=== PATIENT | female | born 1995 | race Two or more races ===

== ENCOUNTER 2024-11-11 00:35 | Emergency (ER) | payer MEDICAID ==
[~2024-11-11] VITALS: Ht 154.9 cm; Wt 81.8 kg
--- NOTE | 2024-11-11 00:50 | ECG ---
[facility] Test Date: 2024-11-11 Test Time: 00:49:22 Pat Name: RADHA CAMACHO Department: ED Room: Gender: F Rn Call Center: [facility] : 1995 Requested By: NEVAEH ESTEVES Order Number: [id number] Reading MD: Memo Crowley Measurements Intervals Orange Rate: 96 P: 46 OK: 167 QRS: -26 QRSD: 92 T: -34 QT: 358 QTc: 453 Interpretive Statements Sinus rhythm Borderline left axis deviation Nonspecific T abnormalities, diffuse leads Electronically Signed On 11-11-2024 20:36:44 PDT by Memo Crowley Please click the below link to view image of tracing.
--- NOTE | 2024-11-11 01:14 | ED.PDOC ---
History of Present Illness HPI Comments This patient is a 29-year-old female who was brought to the ED today by EMS due to complaints of anxiety status post utilizing cocaine approximately 2 hours prior to arrival. Patient states she has used cocaine in the past, but this time felt like her heart was beating out of her chest and caused her anxiety. Patient has a history of anxiety for which he utilize his medication. Patient denies any fever nausea or vomiting. Patient was mildly tachycardic at arrival. 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: No Pertinent OIL PROGRAM COMPLIANCE SPECIALIST History Family History Family History: Reviewed,noncontributory to illness, No family hx of Cancer, No family hx of DM, No family hx of Heart kinga, No family hx of HTN, No family hx ofKidney kinga, No family hx of Liver kinga, No family hx of Lung kinga, No family hx of Stroke Social History Smoker: Non-Smoker Alcohol: Denies ETOH Use Drugs: Cocaine Lives In: Home Constitutional: denies: chills, diaphoresis, fatigue, fever, malaise, sweats, weakness, others EENTM: denies: blurred vision, double vision, ear bleeding, ear discharge, ear drainage, ear pain, ear ringing, eye pain, eye redness, hearing loss, mouth pain, mouth swelling, nasal discharge, nose bleeding, nose congestion, nose pain, photophobia, tearing, throat pain, throat swelling, voice changes, others Respiratory: denies: cough, hemoptysis, orthopnea, SOB at rest, shortness of breath, SOB with excertion, stridor, wheezing, others Cardiovascular: reports: chest pain; denies: dizzy spells, diaphoresis, Dyspnea on exertion, edema, irregular heart beat, left arm pain, lightheadedness, palpitations, PND, syncope, others Gastrointestinal: denies: abdomen distended, abdominal pain, blood streaked bowels, constipated, diarrhea, dysphagia, difficulty swallowing, hematemesis, melena, nausea, poor appetite, poor fluid intake, rectal bleeding, rectal pain, vomiting, others Genitourinary: denies: abnormal vagina bleeding, burning, dyspareunia, dysuria, flank pain, frequency, hematuria, incontinence, pain, , vagina discharge, urgency, others Neurological: denies: dizziness, fainting, headache, left sided numbness, left sided weakness, numbness, paresthesia, pre-existing deficit, right sided numbness, right sided weakness, seizure, speech problems, tingling, tremors, weakness, others Musculoskeletal: denies: back pain, gout, joint pain, joint swelling, muscle pain, muscle stiffness, neck pain, others Integumetry: denies: bruises, change in color, change in hair/nails, dryness, laceration, lesions, lumps, rash, wounds, others Allergic/Immunocompromised: denies: Difficulty Healing, Frequent Infections, Hives, Itching, others Hematologic/Lymphatic: denies: anemia, blood clots, easy bleeding, easy bruising, swollen glands, others Endocrine: denies: excessive hunger, excessive sweating, excessive thirst, excessive urination, flushing, intolerance to cold, intolerance to heat, unexplained weight gain, unexplained weight loss, others Psychiatric: reports: anxiety; denies: bipolar disorder, depression, hopeless, panic disorder, schizophrenia, sleepless, suicidal, others Physical Exam General Appearance: Moderate Distress (Who was in [id number] distress due to anxiety concerns at time of evaluation. Patient states her symptoms have improved from her initial called EMS.), Normal HEENT: Normal ENT Inspection, Pharynx Normal, TMs Normal Neck: Full Range of Motion, Non-Tender, Normal, Normal Inspection Respiratory: Chest Non-Tender, Lungs Clear, No Accessory Muscle Use, No Respiratory Distress, Normal Breath Sounds Cardiovascular: No Edema, No JVD, No Murmur, No Gallop, Normal Peripheral Pulses, Regular Rate/Rhythm Breast Exam: Deferred Gastrointestinal: No Organomegaly, Non Tender, No Pulsatile Mass, Normal Bowel Sounds, Soft Genitalia: Deferred Pelvic: Deferred Rectal: Deferred Extremities: No calf tenderness, Normal capillary refill, Normal inspection, Normal range of motion, Non-tender, No pedal edema Neurologic: Alert, No Motor Deficits, No Sensory Deficits Cerebellar Function: Normal Reflexes: Normal Skin: Dry, Normal Color, Warm Lymphatic: No Adenopathy Was a procedure done? Was a procedure done?: No Differential Dx Considerations may include: Cocaine use, anxiety X-Ray, Labs, Meds, VS Vital Signs Date Time Temp Pulse Resp B/P (MAP) Pulse Ox O2 Delivery O2 Flow Rate FiO2 11/11/24 00:49 96 11/11/24 00:35 18 95 Room Air* 0 21 11/11/24 00:35 98.8 111 18 131/76 (94) 95 98.8 X-Ray, Labs, Meds, VS Comment All studies performed the ED were evaluated by me personally. EKGs showed a sinus rhythm with a rate of 96. Borderline left axis deviation and nonspecific T-wave abnormalities. MT interval 167 and QT interval of 358. Patient states she had felt improved and feels comfortable being discharged home as she has a anxiety medication there that she will utilize as needed. Advised patient cease cocaine use moving forward to stave off these types of events. Time of 1ST Reevaluation: 01:13 Reevaluation 1ST: Improved Consultation: PCP Patient Education/Counseling: Diagnosis, Treatment Family Education/Counseling: Diagnosis, Treatment Departure 1 Departure Time of Disposition: 01:13 Impression: Primary Impression: Cocaine use Additional Impression: Anxiety Disposition: 01 HOME / SELF CARE / HOMELESS Condition: Stable Additional Instructions: Advised patient cease cocaine use to stave off these types of events in the future. Advised patient utilize her home anxiety medication as needed. Discharged With: Self, Friend Critical Care Note Critical Care Time?: No Stability Stability form required: No Heart Score Heart Score: Heart Score Response (Comments) Value History Slightly Suspicious 0 EKG Normal 0 Age <45 0 Risk Factors 1 or 2 risk factors 1 Troponin N/A 0 Total 1 NEVAEH ESTEVES PAC Nov 11, 2024 01:14
[2024-11-11 01:15] VITALS: BP 131/70; PULSE 96; RESP 18; TEMP 97.9; O2SAT 98
[2024-11-11] MEDS ORDERED: AUG875T PO (12:59)
== END 2024-11-11 01:33 | disposition home or self-care (01) ==
LOC: EDBD 00:35 → ER 00:35
DX: F41.9 Anxiety disorder, unspecified (principal); F14.90 Cocaine use, unspecified, uncomplicated; Z79.899 Other long term (current) drug therapy
CPT/HCPCS: 93005

== ENCOUNTER 2024-11-11 12:30 | Emergency (ER) | payer MEDICAID ==
[~2024-11-11] VITALS: Ht 160 cm; Wt 85.8 kg
[2024-11-11] MEDS ORDERED: AUG875T PO (12:59)
--- NOTE | 2024-11-11 13:00 | ED.PDOC ---
History of Present Illness HPI Comments squirrel bite on left index finger Comments pt saw a squirrel trapped in a squirrel trap in the road, treied to free the squirrel and was bitten on her left index finger. unknown last tdap shot. pt was seen at and prescribed keflex and told to come for rabies vaccinating Time Seen by MD: 12:46 Reviewed Notes: Nurses Notes Allergies: Coded Allergies: NO KNOWN ALLERGIES (Unverified , 11/11/24) Home Meds Active Scripts Amoxicillin & Pot Clavulanate (AUGMENTIN TABLET) 875 Mg Tb, 875 MG PO BID for 7 Days, #14 TAB Prov:COLLETTE SLADE MD 11/11/24 Information Source: Patient Mode of Arrival: Ambulatory Severity: Mild Timing: Minutes Duration: Since onset Past Medical History PAST MEDICAL HISTORY: Anxiety Surgical History: Denies all surgeries BOOTMAKER History: No Pertinent BOOTMAKER History Family History Family History: Reviewed,noncontributory to illness, No family hx of Cancer, No family hx of DM, No family hx of Heart kinga, No family hx of HTN, No family hx ofKidney kinga, No family hx of Liver kinga, No family hx of Lung kinga, No family hx of Stroke Social History Smoker: Non-Smoker Alcohol: Denies ETOH Use Drugs: Cocaine Lives In: Home Integumetry: reports: wounds Physical Exam General Appearance: No Apparent Distress, Normal HEENT: Normal ENT Inspection, Pharynx Normal, TMs Normal Neck: Full Range of Motion, Non-Tender, Normal, Normal Inspection Respiratory: Chest Non-Tender, Lungs Clear, No Accessory Muscle Use, No Respiratory Distress, Normal Breath Sounds Cardiovascular: No Edema, No JVD, No Murmur, No Gallop, Normal Peripheral Pulses, Regular Rate/Rhythm Breast Exam: Deferred Gastrointestinal: No Organomegaly, Non Tender, No Pulsatile Mass, Normal Bowel Sounds, Soft Genitalia: Deferred Pelvic: Deferred Rectal: Deferred Extremities: No calf tenderness, Normal capillary refill, Normal inspection, Normal range of motion, Non-tender, No pedal edema Musculoskeletal : Apperance: Normal Neurologic: Alert, pipelaying fitter II-XII nml as Tested, No Motor Deficits, Normal Affect, Normal Mood, No Sensory Deficits Cerebellar Function: Normal Reflexes: Normal Skin: Dry, Normal Color, Warm, Wounds (tip of left index finger with a .5cm linear laceration that is closed and not bleeding.) Lymphatic: No Adenopathy Was a procedure done? Was a procedure done?: No Differential Dx Considerations may include: animal bite, amputation, fracture, FB retention. wound infection, rabies exposure X-Ray, Labs, Meds, VS Vital Signs Date Time Temp Pulse Resp B/P (MAP) Pulse Ox O2 Delivery O2 Flow Rate FiO2 11/11/24 13:12 98.5 75 15 108/75 (86) 97 98.5 Time of 1ST Reevaluation: 13:32 Reevaluation 1ST: Unchanged Patient Education/Counseling: Diagnosis, Treatment, Prognosis, Need For Follow Up Family Education/Counseling: No Family Present Additional Information i will prescribe3 augmentin for better coverage of animal bite. i will update her tdap. however, there is no indication for rabies vaccination. squirrels are not known hosts for rabies and this was not an unprovoked attack. Departure 1 Departure Time of Disposition: 12:58 Impression: Primary Impression: Animal bite Disposition: HOME / SELF CARE / HOMELESS Condition: Good e-Prescriptions Amoxicillin & Pot Clavulanate (AUGMENTIN TABLET) 875 Mg Tb 875 MG PO BID for 7 Days, #14 TAB Prov: COLLETTE SLADE MD 11/11/24 Discharged With: Self Critical Care Note Critical Care Time?: No Stability Stability form required: No COLLETTE SLADE MD Nov 11, 2024 13:00
[2024-11-11 13:12] VITALS: TEMP 98.5
[2024-11-11] MEDS: TETANUS-DIPTH-ACEL PERTUSSIS 0.5ML SYR Tdap IM ONE (14:14)
[2024-11-11 14:17] VITALS: BP 115/54; PULSE 68; RESP 18; O2SAT 97
== END 2024-11-11 14:19 | disposition home or self-care (01) ==
LOC: ER 12:30
DX: S61.211A Laceration without foreign body of left index finger without damage to nail, initial encounter (principal); Z23 Encounter for immunization; F41.9 Anxiety disorder, unspecified; W53.21XA Bitten by squirrel, initial encounter; Y93.89 Activity, other specified; Y92.89 Other specified places as the place of occurrence of the external cause; Y92.410 Unspecified street and highway as the place of occurrence of the external cause
CPT/HCPCS: 90471; 90715